=== PATIENT | male | born 1970 | race African-American/Black ===

== ENCOUNTER → 2017-03-18 | Day surgery (SDC) | payer OTHER ==
[~2017-03-18] MED LIST: IV RINGERS SOLUTION,LACTATED 1,000 ML IV ONE; LIDOCAINE 2% PF Vial for OR 5 ML VIAL. ONE; PROPOFOL 40 ML IV ONE
== END | disposition home or self-care (01) ==
LOC: SURG 10:07
PROVIDERS: ATTEND Internal Medicine Gastroenterology
DX: Z09 Encounter for follow-up examination after completed treatment for conditions other than malignant neoplasm (principal); Z86.010 Personal history of colon polyps; K64.1 Second degree hemorrhoids; I10 Essential (primary) hypertension; F41.9 Anxiety disorder, unspecified; F32.9 Major depressive disorder, single episode, unspecified
CPT/HCPCS: 45378; J2704; J7120; J2001